=== PATIENT | female | born 1990 | race Caucasian/White ===

== ENCOUNTER → 2017-03-27 | Outpatient (CLI) | payer BC ==
[~2017-03-27] VITALS: Ht 177.8 cm; Wt 73.5 kg
[~2017-03-27] MED LIST: AUBRA1 EACH PO; CIPRO500 MG PO; FLAGYL500 MG PO; HYDROCODON-ACE1 EAC9 PO; PREDNISONE5 M1 PO; ZOFRAN8 MG PO
== END | disposition home or self-care (01) ==
LOC: AMB 10:03
PROVIDERS: Anesthesiology
PROC: 0DBM8ZX Excision of Descending Colon, Via Natural or Artificial Opening Endoscopic, Diagnostic (ICD-10-PCS; principal; 2017-03-27)
DX: K63.5 Polyp of colon (principal); R10.11 Right upper quadrant pain; F17.210 Nicotine dependence, cigarettes, uncomplicated
CPT/HCPCS: 81025; 88305; G0480; J2250; J3010

== ENCOUNTER → 2017-04-13 | Outpatient (CLI) | payer BC | END | disposition home or self-care (01) | LOC: NUC 12:51 | DX: K82.8 Other specified diseases of gallbladder (principal); Z79.3 Long term (current) use of hormonal contraceptives | CPT/HCPCS: 78227; A9537; J2270 ==

== ENCOUNTER → 2017-04-21 | Outpatient (CLI) | payer BC ==
[~2017-04-21] VITALS: Ht 177.8 cm; Wt 73.0 kg
[~2017-04-21] MED LIST changes: +FLEXERIL10 MG PO; +MOTRIN800 MG PO; +OMEPRAZOLE40 M1 PO
== END | disposition home or self-care (01) ==
LOC: AMB 12:58
PROC: 0DB68ZX Excision of Stomach, Via Natural or Artificial Opening Endoscopic, Diagnostic (ICD-10-PCS; principal; 2017-04-21)
DX: K29.70 Gastritis, unspecified, without bleeding (principal)
CPT/HCPCS: 88305; 88342 TC; G0480; J2250

== ENCOUNTER 2017-05-10 12:19 | Day surgery (SDC) | payer BC ==
[~2017-05-10] VITALS: Ht 177.8 cm; Wt 73.0 kg
[2017-05-10 12:53] VITALS: BP 115/74
[2017-05-10] MEDS ORDERED: NORCO 5/3251 TABLET PO (16:47)
[2017-05-10 17:25] VITALS: BP 121/79
[2017-05-10 18:19] VITALS: BP 140/94
== END 2017-05-10 18:18 | disposition home or self-care (01) ==
LOC: SDC 12:19
PROVIDERS: Surgery
DX: K81.1 Chronic cholecystitis (principal); F41.1 Generalized anxiety disorder; K21.0 Gastro-esophageal reflux disease with esophagitis; F17.210 Nicotine dependence, cigarettes, uncomplicated
CPT/HCPCS: 74300; 81025; 88304; C1769; J0131; J1100; J1170; J1200; J1885; J2250; J2405; J2765; J3010; S0020; S0074